=== PATIENT | male | born 1980 | race Caucasian/White ===

== ENCOUNTER 2021-08-26 18:56 | Emergency (ER) | payer MEDICAID ==
--- NOTE | 2021-08-26 19:00 | NUR ---
Pt in waiting room waiting for bed to become available. Dr. Bentley made aware.
--- NOTE | 2021-08-26 19:03 | NUR ---
Dr. Bentley assessing pt in waiting room.
--- NOTE | 2021-08-26 19:30 | NUR ---
Patient given written and verbal discharge instructions and verbalizes understanding. ER MD discussed with patient the results and treatment provided. Patient in stable condition. ID arm band removed. Patient educated on pain management and to follow up with PMD. Pain Scale . Opportunity for questions provided and answered. Medication side effect fact sheet provided.
[2021-08-26 20:06] VITALS: BP_SYST 128
[2021-08-26 20:09] VITALS: BP_SYST 134
== END 2021-08-26 19:30 | disposition home or self-care (01) ==
LOC: SED 18:56
DX: S31.105D Unspecified open wound of abdominal wall, periumbilic region without penetration into peritoneal cavity, subsequent encounter (principal); Z48.02 Encounter for removal of sutures; X58.XXXD Exposure to other specified factors, subsequent encounter
CPT/HCPCS: 99281